=== PATIENT | female | born 1990 | race Caucasian/White ===

== ENCOUNTER 2018-12-29 02:41 | Emergency (ER) | payer SELFPAY ==
[~2018-12-29] VITALS: Ht 167.6 cm; Wt 110.0 kg
[2018-12-29 02:59] VITALS: BP 136/80
[2018-12-29] MEDS ORDERED: acetaminophen 325mg tablet PO ONE (03:15)
== END 2018-12-29 03:33 ==
LOC: ER 02:42
DX: S46.912A Strain of unspecified muscle, fascia and tendon at shoulder and upper arm level, left arm, initial encounter (principal); S20.312A Abrasion of left front wall of thorax, initial encounter; S80.212A Abrasion, left knee, initial encounter; S80.211A Abrasion, right knee, initial encounter; M54.2 Cervicalgia; Z02.89 Encounter for other administrative examinations; V47.5XXA Car driver injured in collision with fixed or stationary object in traffic accident, initial encounter; Y93.89 Activity, other specified; Y92.488 Other paved roadways as the place of occurrence of the external cause; Y99.8 Other external cause status
CPT/HCPCS: 73000; 99283

== ENCOUNTER 2024-05-29 13:43 | Outpatient (CLI) | payer MEDICAID | END 2024-05-29 23:59 | disposition home or self-care (01) | LOC: RAD 13:43 | PROVIDERS: ATTEND Podiatrist Foot & Ankle Surgery | DX: M76.71 Peroneal tendinitis, right leg (principal); M72.2 Plantar fascial fibromatosis; M21.6X1 Other acquired deformities of right foot; M25.371 Other instability, right ankle; M79.671 Pain in right foot | CPT/HCPCS: 73700 ==